=== PATIENT | female | born 1975 | race Caucasian/White ===

== ENCOUNTER → 2017-07-13 | Outpatient (CLI) | payer OTHER ==
[2017-07-13 14:17] LABS: BASO % 1 % (0-3); EOS # 0.1 x10^3/uL (0.0-0.7); EOS % 1 % (0-3); HEMATOCRIT 41.7 % (36.0-47.0); HEMOGLOBIN 13.5 g/dL (12.0-15.5); LYMPH # 1.5 x10^3/uL (1.0-4.8); LYMPH % 32 % (24-48); MEAN CORPUSCULAR HEMOGLOBIN 26 pg (25-35); MEAN CORPUSCULAR HGB CONC 33 g/dL (31-37); MEAN CORPUSCULAR VOLUME 80 fL (79-100); MONO # 0.7 x10^3/uL (0.0-1.1); MONO % 14 % (0-9); NEUT # 2.5 x10^3uL (1.8-7.7); NEUT % 52 % (31-73); PLATELET COUNT 191 x10^3/uL (140-400); RED BLOOD COUNT 5.23 x10^6/uL (3.50-5.40); RED CELL DISTRIBUTION WIDTH 19.8 % (11.5-14.5); WHITE BLOOD COUNT 4.8 x10^3/uL (4.0-11.0)
[2017-07-13 14:22] LABS: BILIRUBIN,URINE NEG (NEG); CLARITY,URINE HAZY; COLOR,URINE YELLOW; GLUCOSE,URINE NEG (NEG); NITRITE,URINE NEG (NEG); UROBILINOGEN,URINE 0.2 mg/dL (0.2 mg/dL)
[2017-07-13 14:23] LABS: ALBUMIN 3.5 g/dL (3.4-5.0); BACTERIA,URINE 0 /HPF (0-FEW); CALCIUM 8.8 mg/dL (8.5-10.1); CREATININE 0.7 mg/dL (0.6-1.0); DIRECT BILIRUBIN 0.1 mg/dL (0.0-0.2); GFR 90.9; PHOSPHORUS 3.9 mg/dL (2.6-4.7); POTASSIUM 3.9 mmol/L (3.5-5.1); RBC,URINE OCC /HPF (0-2); SQUAMOUS EPITHELIAL CELL,UR FEW /LPF; TOTAL BILIRUBIN 0.3 mg/dL (0.2-1.0); TOTAL PROTEIN 6.7 g/dL (6.4-8.2); WBC,URINE OCC /HPF (0-4)
[2017-07-14 04:08] LABS: HEMOGLOBIN A1C 5.2 % (4.8-5.6)
[2017-07-14 05:13] LABS: CREAT CLEAR 24 92 mL/min (88-128); PROTEIN 24 HR UR 81 mg/24 hr (30-150); TOTAL SERUM CREATININE 0.73 mg/dL (0.57-1.00); TOTAL URINE CREATININE 55.5 mg/dL (Not Estab.); UR PROTEIN 4.6 mg/dL (Not Estab.)
[2017-07-14 11:13] LABS: MICRO CREAT RATIO <5.4 mg/g creat (0.0-30.0); MICROALB RD UR <3.0 ug/mL (Not Estab.)
[2017-07-14 16:13] LABS: THYROID STIM HORMONE (TSH) 1.064 uIU/mL (0.358-3.740)
[2017-07-14 22:08] LABS: UR CREATININE RD 54.3 mg/dL (Not Estab.); UR PROTEIN RD 4.2 mg/dL (Not Estab.)
== END | disposition home or self-care (01) ==
LOC: LAB 13:19
PROVIDERS: ATTEND Nurse Practitioner Family
DX: Z00.5 Encounter for examination of potential donor of organ and tissue (principal); R79.89 Other specified abnormal findings of blood chemistry
CPT/HCPCS: 36415; 80061; 80069; 80076; 81001; 82043; 82570; 82575; 83036; 84156; 84443; 84702; 85025; 85610; 85730; 86900; 86901; 87086

== ENCOUNTER → 2017-09-25 | Outpatient (CLI) | payer OTHER ==
--- NOTE | 2017-09-25 15:59 | RAD ---
Examination: Ultrasound kidneys HISTORY: History of right renal cyst COMPARISON: None available FINDINGS: Right kidney measures 11.1 x 4.1 x 5.8 cm. The left kidney measures 11.1 x 5.8 x 5.4 cm. The urinary bladder is mildly distended. IMPRESSION: Unremarkable visualized exam. An obvious cyst could not be identified on the visualized images. Electronically signed by: Myke Moon MD (09/25/2017 3:55 PM) [id number]
--- NOTE | 2017-09-25 17:32 | RAD ---
Pelvic ultrasound Clinical Indication: Endometrial hyperplasia.. . TRANSABDOMINAL SCAN Uterus measures 9 cm longitudinal by 5 cm AP. Endometrial stripe measures 12 mm. Left ovary measures 4.4 cm with intact blood supply. Uterus measures 6.6 cm wide. Right ovary not seen TRANSVAGINAL SCAN Uterus: * Size (in centimeters): 10.0 cm longitudinal by 5.1 cm AP by 6.0 cm wide * Appearance: No focal mass * Endometrium: 11 mm thickness Right ovary: * Size (in centimeters): 2.9 cm long axis * Blood flow: Intact * Appearance: Small follicles. No significant mass. Left ovary: * Size (in centimeters): 3.3 cm * Blood flow: Intact * Appearance: Small follicles. No dominant mass. Free fluid: At least mild free pelvic fluid is noted. IMPRESSION: 1. At least mild free pelvic fluid. 2. Otherwise unremarkable pelvic ultrasound. Electronically signed by: Eugene Stratton MD (09/25/2017 5:28 PM) [id number]
== END | disposition home or self-care (01) ==
LOC: US 08:32
PROVIDERS: ATTEND Nurse Practitioner Family
DX: N28.1 Cyst of kidney, acquired (principal); N85.00 Endometrial hyperplasia, unspecified
CPT/HCPCS: 76770; 76830; 76856

== ENCOUNTER → 2017-12-18 | Outpatient (CLI) | payer OTHER ==
[2017-12-18 13:42] LABS: BASO # 0.1 x10^3/uL (0.0-0.2); BASO % 1 % (0-3); EOS # 0.2 x10^3/uL (0.0-0.7); EOS % 3 % (0-3); HEMATOCRIT 45.7 % (36.0-47.0); HEMOGLOBIN 15.2 g/dL (12.0-15.5); LYMPH # 1.2 x10^3/uL (1.0-4.8); LYMPH % 14 % (24-48); MEAN CORPUSCULAR HEMOGLOBIN 29 pg (25-35); MEAN CORPUSCULAR HGB CONC 33 g/dL (31-37); MEAN CORPUSCULAR VOLUME 88 fL (79-100); MONO % 11 % (0-9); NEUT # 6.6 x10^3uL (1.8-7.7); NEUT % 73 % (31-73); PLATELET COUNT 324 x10^3/uL (140-400); RED BLOOD COUNT 5.18 x10^6/uL (3.50-5.40); RED CELL DISTRIBUTION WIDTH 13.2 % (11.5-14.5)
[2017-12-18 13:52] LABS: ALBUMIN 3.6 g/dL (3.4-5.0); CALCIUM 9.1 mg/dL (8.5-10.1); CREATININE 1.3 mg/dL (0.6-1.0); GFR 44.5; POTASSIUM 4.2 mmol/L (3.5-5.1)
[2017-12-18 14:01] LABS: BILIRUBIN,URINE NEG (NEG); CLARITY,URINE HAZY; COLOR,URINE YELLOW; GLUCOSE,URINE NEG (NEG)
[2017-12-18 14:02] LABS: BACTERIA,URINE FEW /HPF (0-FEW); NITRITE,URINE NEG (NEG); SQUAMOUS EPITHELIAL CELL,UR FEW /LPF; UROBILINOGEN,URINE 0.2 mg/dL (0.2 mg/dL)
== END | disposition home or self-care (01) ==
LOC: LAB 11:50
PROVIDERS: ATTEND Nurse Practitioner Family
DX: Z00.01 Encounter for general adult medical examination with abnormal findings (principal); Z52.4 Kidney donor; R82.90 Unspecified abnormal findings in urine
CPT/HCPCS: 36415; 80069; 81001; 85025

== ENCOUNTER → 2018-01-22 | Outpatient (CLI) | payer OTHER ==
[2018-01-22 09:41] LABS: ALBUMIN 3.7 g/dL (3.4-5.0); CALCIUM 8.9 mg/dL (8.5-10.1); CREATININE 1.1 mg/dL (0.6-1.0); PHOSPHORUS 3.1 mg/dL (2.6-4.7); POTASSIUM 3.9 mmol/L (3.5-5.1)
[2018-01-22 09:43] LABS: BASO # 0.1 x10^3/uL (0.0-0.2); BASO % 2 % (0-3); EOS # 0.1 x10^3/uL (0.0-0.7); EOS % 2 % (0-3); HEMATOCRIT 42.6 % (36.0-47.0); HEMOGLOBIN 14.2 g/dL (12.0-15.5); LYMPH # 1.1 x10^3/uL (1.0-4.8); LYMPH % 17 % (24-48); MEAN CORPUSCULAR HEMOGLOBIN 30 pg (25-35); MEAN CORPUSCULAR HGB CONC 33 g/dL (31-37); MEAN CORPUSCULAR VOLUME 89 fL (79-100); MONO # 0.8 x10^3/uL (0.0-1.1); MONO % 12 % (0-9); NEUT # 4.3 x10^3uL (1.8-7.7); NEUT % 67 % (31-73); PLATELET COUNT 217 x10^3/uL (140-400); RED BLOOD COUNT 4.78 x10^6/uL (3.50-5.40); RED CELL DISTRIBUTION WIDTH 13.5 % (11.5-14.5); WHITE BLOOD COUNT 6.5 x10^3/uL (4.0-11.0)
[2018-01-22 09:57] LABS: AMORPHOUS SEDIMENT,UR PRESENT /HPF; BACTERIA,URINE FEW /HPF (0-FEW); BILIRUBIN,URINE NEG (NEG); CLARITY,URINE HAZY; COLOR,URINE YELLOW; GLUCOSE,URINE NEG (NEG); NITRITE,URINE NEG (NEG); RBC,URINE 0 /HPF (0-2); SQUAMOUS EPITHELIAL CELL,UR MOD /LPF; UROBILINOGEN,URINE 0.2 mg/dL (0.2 mg/dL); WBC,URINE 0 /HPF (0-4)
== END | disposition home or self-care (01) ==
LOC: LAB 08:38
PROVIDERS: ATTEND Nurse Practitioner Family
DX: Z52.4 Kidney donor (principal)
CPT/HCPCS: 36415; 80069; 81001; 85025

== ENCOUNTER → 2018-07-06 | Outpatient (CLI) | payer OTHER ==
[2018-07-06 13:27] LABS: BASO % 1 % (0-3); EOS # 0.1 x10^3/uL (0.0-0.7); EOS % 1 % (0-3); HEMATOCRIT 42.6 % (36.0-47.0); HEMOGLOBIN 14.4 g/dL (12.0-15.5); LYMPH # 1.6 x10^3/uL (1.0-4.8); LYMPH % 25 % (24-48); MEAN CORPUSCULAR HEMOGLOBIN 30 pg (25-35); MEAN CORPUSCULAR HGB CONC 34 g/dL (31-37); MEAN CORPUSCULAR VOLUME 89 fL (79-100); MONO # 0.8 x10^3/uL (0.0-1.1); MONO % 12 % (0-9); NEUT # 4.1 x10^3uL (1.8-7.7); NEUT % 62 % (31-73); PLATELET COUNT 206 x10^3/uL (140-400); RED BLOOD COUNT 4.82 x10^6/uL (3.50-5.40); WHITE BLOOD COUNT 6.6 x10^3/uL (4.0-11.0)
[2018-07-06 13:30] LABS: ALBUMIN 3.9 g/dL (3.4-5.0); CALCIUM 9.4 mg/dL (8.5-10.1); PHOSPHORUS 3.3 mg/dL (2.6-4.7); POTASSIUM 3.4 mmol/L (3.5-5.1)
[2018-07-06 13:43] LABS: BACTERIA,URINE 0 /HPF (0-FEW); BILIRUBIN,URINE NEG (NEG); CLARITY,URINE HAZY; COLOR,URINE YELLOW; GLUCOSE,URINE NEG (NEG); NITRITE,URINE NEG (NEG); RBC,URINE RARE /HPF (0-2); SQUAMOUS EPITHELIAL CELL,UR FEW /LPF; UROBILINOGEN,URINE 0.2 mg/dL (0.2 mg/dL); WBC,URINE RARE /HPF (0-4)
== END | disposition home or self-care (01) ==
LOC: LAB 12:54
PROVIDERS: ATTEND Nurse Practitioner Family
DX: Z94.0 Kidney transplant status (principal)
CPT/HCPCS: 36415; 80069; 81001; 85025

== ENCOUNTER 2021-03-09 07:49 | Emergency (ER) | payer BC, OTHER ==
[~2021-03-09] VITALS: Ht 160 cm; Wt 76.8 kg
[2021-03-09] MEDS ORDERED: ONDANSETRON PF 4 MG/2 ML VIAL. IVP ONE ×2 (08:00→10:30)
[2021-03-09] MEDS ORDERED: IV NORMAL SALINE 1,000ML 1,000 ML IV SCH (08:00)
--- NOTE | 2021-03-09 08:01 | PHYS DOC ---
Past History Past Medical History: No Pertinent History Past Surgical History Left nephrectomy 2019 Smoking: Non-smoker Adult General HPI HPI Patient is a 45-year-old female presenting for right-sided flank pain. Onset was this morning and awoke her from sleep. Nothing known makes better or worse. Reports pain originates in right flank and radiates to the right pubic region. Timing of symptoms has been constant since onset. Pain is described as sharp in 10/10 in severity. Associated symptoms include nausea and x1 episode of nonbloody nonbilious emesis due to the pain. She otherwise has no issues urinary dating and/or defecating. Has prior history of left-sided nephrectomy in 2019, she donated her kidney and is on no residual medications, no other noteworthy medical conditions reported Review of Systems Review of Systems Fourteen body systems of review of systems have been reviewed. See HPI for pertinent positives and negative responses, other baca all other systems are negative, non-pertinent or non-contributory Physical Exam Physical Exam Constitutional: Well developed, well nourished, age-appropriate, moderate distress due to acute pain but is otherwise non-toxic in appearance. HENT: Normocephalic, atraumatic, bilateral external ears normal, oropharynx moist, no oral exudates, nose normal. Eyes: PERRLA, EOMI, conjunctiva normal, no discharge. Neck: Normal range of motion, no tenderness, supple, no stridor. Cardiovascular: Heart rate regular, sinus rhythm, no murmurs rubs or gallops Lungs & Thorax: Bilateral breath sounds clear to auscultation Abdomen: Bowel sounds normal, soft, no tenderness, no masses, no pulsatile masses. Nonsurgical abdomen, no peritoneal signs Skin: Warm, dry, no erythema, no rash. Back: No tenderness, right CVA tenderness. Extremities: No tenderness, no cyanosis, no clubbing, ROM intact, no edema. Neurologic: Alert and oriented X 3, grossly normal motor & sensory function, no focal deficits noted. Psychologic: Tearful affect, anxious mood Current Patient Data Vital Signs Vital Signs Date Time Temp Pulse Resp B/P (MAP) Pulse Ox O2 Delivery O2 Flow Rate FiO2 03/09/21 07:55 97.5 64 20 141/74 (96) 100 Room Air Vital Signs Date Time Temp Pulse Resp B/P (MAP) Pulse Ox O2 Delivery O2 Flow Rate FiO2 03/09/21 07:55 97.5 64 20 141/74 (96) 100 Room Air Lab Results Laboratory Tests Test 03/09/21 08:01 White Blood Count 7.3 x10^3/uL Red Blood Count 5.09 x10^6/uL Hemoglobin 13.1 g/dL Hematocrit 41.0 % Mean Corpuscular Volume 81 fL Mean Corpuscular Hemoglobin 26 pg Mean Corpuscular Hemoglobin Concent 32 g/dL Red Cell Distribution Width 17.2 % Platelet Count 206 x10^3/uL Neutrophils (%) (Auto) 47 % Lymphocytes (%) (Auto) 34 % Monocytes (%) (Auto) 16 % Eosinophils (%) (Auto) 3 % Basophils (%) (Auto) 1 % Neutrophils # (Auto) 3.4 x10^3uL Lymphocytes # (Auto) 2.4 x10^3/uL Monocytes # (Auto) 1.2 x10^3/uL Eosinophils # (Auto) 0.2 x10^3/uL Basophils # (Auto) 0.1 x10^3/uL Sodium Level 140 mmol/L Potassium Level 3.6 mmol/L Chloride Level 104 mmol/L Carbon Dioxide Level 25 mmol/L Anion Gap 11 Blood Urea Nitrogen 18 mg/dL Creatinine 1.2 mg/dL Estimated GFR (Cockcroft-Gault) 48.2 BUN/Creatinine Ratio 15 Glucose Level 145 mg/dL Calcium Level 8.8 mg/dL Total Bilirubin 0.4 mg/dL Aspartate Amino Transf (AST/SGOT) 19 U/L Alanine Aminotransferase (ALT/SGPT) 21 U/L Alkaline Phosphatase 98 U/L Total Protein 7.2 g/dL Albumin 3.6 g/dL Albumin/Globulin Ratio 1.0 Lipase 124 U/L Current Medications Medications (Trade) Dose Ordered Sig/Goldie Route PRN Reason Start Time Stop Time Status Last Admin Dose Admin Sodium Chloride 1,000 ml @ 1,000 mls/hr Q1H IV 03/09/21 08:00 03/09/21 08:59 DC 03/09/21 08:09 Fentanyl Citrate (Fentanyl 2ml Vial) 75 mcg 1X ONCE IVP 03/09/21 08:00 03/09/21 08:26 DC 03/09/21 08:08 Ondansetron HCl (Zofran) 4 mg 1X ONCE IVP 03/09/21 08:00 03/09/21 08:26 DC 03/09/21 08:08 Fentanyl Citrate (Fentanyl 2ml Vial) 75 mcg 1X ONCE IVP 03/09/21 09:00 03/09/21 09:01 DC 03/09/21 08:57 Ondansetron HCl (Zofran) 4 mg 1X ONCE IVP 03/09/21 10:30 03/09/21 10:31 DC 03/09/21 10:28 Acetaminophen/ Hydrocodone Bitart (Lortab 10/325) 1 tab 1X ONCE PO 03/09/21 10:30 03/09/21 10:31 DC 03/09/21 10:28 EKG EKG [] Radiology/Procedures Radiology/Procedures EXAM: Abdomen and pelvis CT without intravenous contrast. HISTORY: Right flank pain. TECHNIQUE: Computed tomographic images of the abdomen and pelvis were obtained without contrast. Multiplanar reformatting was performed. *One or more of the following individualized dose reduction techniques were utilized for this examination: 1. Automated exposure control. 2. Adjustment of the mA and/or kV according to patient size. 3. Use of iterative reconstruction technique. COMPARISON: None. FINDINGS: Evaluation of the lower thorax demonstrates no infiltrate or pleural effusion. There is minimal right posterior dependent atelectasis. The heart is n ormal in size. No hepatic lesion is seen on this noncontrast exam. The gallbladder is unremarkable. The pancreas, spleen and adrenal glands are unremarkable. The left kidney is absent. There is mild right hydronephrosis and hydroureter extending to a 3 mm calcification within the right hemipelvis due to a stone at the ureterovesical junction rather than an adjacent pelvic phleboliths. There is a 1 mm nonobstructing right renal stone. The bladder is empty. There is no appendicitis. There is an umbilical and periumbilical hernia containing fat and a segment of mid transverse colon. There is stranding within the herniated fat and adjacent ventral peritoneal fat. There is no evidence of mechanical bowel obstruction or bowel incarceration. The hernia defect measures 5.7 cm transversely by 5.2 cm craniocaudally. There is an additional supraumbilical hernia sac to the right of midline containing fat and measuring approximately 4.6 cm. There is a third tiny fat-containing superior umbilical hernia superior to this location measuring 2.1 cm. The uterus and ovaries are unremarkable. There is trace pelvic free fluid, within physiologic limits for a premenopausal female. There is no lymphadenopathy. There is degenerative change involving the spine, primarily the lumbosacral junction. There is a right foraminal stenosis at L5-S1, and to a lesser extent, left foraminal stenosis at L4-L5. IMPRESSION: 1. Mild right hydronephrosis and hydroureter extending to a suspected 3 mm stone at the ureterovesical junction. 2. Multiple ventral abdominal wall hernias, the largest of which contains fat and a segment of mid transverse colon. There is stranding within the herniated fat and adjacent ventral peritoneal fat, a finding which can be seen with fat ischemia/incarceration. There is no evidence of bowel incarceration or mechanical obstruction. 3. Left nephrectomy. Electronically signed by: Jennifer Rivera MD (03/09/2021 8:32 AM) [id number] Heart Score C/O Chest Pain: No Risk Factors: Risk Factors: DM, Current or recent (<one month) smoker, HTN, HLP, family history of CAD, obesity. Risk Scores: Risk Factors: DM, Current or recent (<one month) smoker, HTN, HLP, family history of CAD, obesity. Course & Med Decision Making Course & Med Decision Making ABCs unremarkable HPI physical exam and comprehensive ER work-up concerning for right sided nonconcerning kidney stone should pass and concerning findings for abdominal fat ischemia Disclose kidney stone is 3 mm, no indication for Flomax subsequent pain meds and expectant management with close PCP follow-up advised I contacted on-call general surgeon at [facility] and reviewed concerning CT abdomen pelvis and physical exam findings, they recommended expectant management and close outpatient follow-up for repeat abdominal evaluation I disclosed entirety of ER findings with patient who symptoms improved with provided ER care. Patient unable to urinate and did not want to wait any longer to urinate before discharge home. As such, appropriate discharge instructions and subsequent return precautions educated to patient and significant other at length prior to ER departure with close outpatient surgery follow-up advised Unruly Disclaimer Unruly Disclaimer This electronic medical record was generated, in whole or in part, using a voice recognition dictation system. Departure Departure: Impression: Primary Impression: Right kidney stone Additional Impression: Abnormal CT of the abdomen Disposition: HOME / SELF CARE / HOMELESS Condition: IMPROVED Referrals: MARI HOLLAND (PCP) Patient Instructions: Kidney Stones Additional Instructions: You were seen for flank pain and bloody urine. You most likely have a kidney stone that will hopefully pass. We are writing you a prescription for pain medication. You should strain your urine to look for the stone. Your CT imaging did not show any signs that your stone is obstructing anything. I also disclosed abnormal findings of potential fat ischemia in the setting of your known ventral abdominal wall hernias. This was discussed with on-call surgeon and it was recommended you see close outpatient follow-up regarding this. You should return to the ED if you develop worsening pain, fever, continued bloody urine, lightheadedness, shortness of breath, chest pain, or any other new or concerning symptoms. Scripts Ondansetron (ONDANSETRON ODT) 4 Mg Tab.rapdis 1 TAB PO PRN Q6-8HRS for NAUSEA, #16 TAB Prov: STEVEN ALEIXS DO 03/09/21 Hydrocodone Bit/Acetaminophen (HYDROCODONE-APAP 10-325 ) 1 Each Tablet 1 TAB PO PRN Q6HRS PRN for PAIN, #20 TAB 0 Refills Prov: STEVEN ALEXIS DO 03/09/21 Problem Qualifiers STEVEN ALEXIS DO Mar 09, 2021 08:01
[2021-03-09 08:18] LABS: BASO # 0.1 x10^3/uL (0.0-0.2); BASO % 1 % (0-3); EOS # 0.2 x10^3/uL (0.0-0.7); EOS % 3 % (0-3); HEMOGLOBIN 13.1 g/dL (12.0-15.5); LYMPH # 2.4 x10^3/uL (1.0-4.8); LYMPH % 34 % (24-48); MEAN CORPUSCULAR HEMOGLOBIN 26 pg (25-35); MEAN CORPUSCULAR HGB CONC 32 g/dL (31-37); MEAN CORPUSCULAR VOLUME 81 fL (79-100); MONO # 1.2 x10^3/uL (0.0-1.1); MONO % 16 % (0-9); NEUT # 3.4 x10^3uL (1.8-7.7); NEUT % 47 % (31-73); PLATELET COUNT 206 x10^3/uL (140-400); RED BLOOD COUNT 5.09 x10^6/uL (3.50-5.40); RED CELL DISTRIBUTION WIDTH 17.2 % (11.5-14.5); WHITE BLOOD COUNT 7.3 x10^3/uL (4.0-11.0)
[2021-03-09 08:23] LABS: CALCIUM 8.8 mg/dL (8.5-10.1); CREATININE 1.2 mg/dL (0.6-1.0); GFR 48.2; POTASSIUM 3.6 mmol/L (3.5-5.1)
[2021-03-09 08:28] LABS: ALBUMIN 3.6 g/dL (3.4-5.0); TOTAL BILIRUBIN 0.4 mg/dL (0.2-1.0); TOTAL PROTEIN 7.2 g/dL (6.4-8.2)
--- NOTE | 2021-03-09 08:34 | RAD ---
EXAM: Abdomen and pelvis CT without intravenous contrast. HISTORY: Right flank pain. TECHNIQUE: Computed tomographic images of the abdomen and pelvis were obtained without contrast. Mult iplanar reformatting was performed. *One or more of the following individualized dose reduction techniques were utilized for this examina tion: 1. Automated exposure control. 2. Adjustment of the mA and/or kV according to patient size. 3. Use of iterative reconstruction technique. COMPARISON: None. FINDINGS: Evaluation of the lower thorax demonstrates no infiltrate or pleural effusion. There is min imal right posterior dependent atelectasis. The heart is normal in size. No hepatic lesion is seen on this noncontrast exam. The gallbladder is unremarkable. The pancreas, spleen and adrenal glands are unremarkable. The left kidney is absent. There is mild right hydronephrosis and hydroureter extending to a 3 mm ashley cification within the right hemipelvis due to a stone at the ureterovesical junction rather than an a djacent pelvic phleboliths. There is a 1 mm nonobstructing right renal stone. The bladder is empty. There is no appendicitis. There is an umbilical and periumbilical hernia containing fat and a segment of mid transverse colon. There is stranding within the herniated fat and adjacent ventral peritoneal fat. There is no evidence of mechanical bowel obstruction or bowel incarceration. The hernia defect measures 5.7 cm transversely by 5.2 cm craniocaudally. There is an additional supraumbilical hernia s ac to the right of midline containing fat and measuring approximately 4.6 cm. There is a third tiny f at-containing superior umbilical hernia superior to this location measuring 2.1 cm. The uterus and ovaries are unremarkable. There is trace pelvic free fluid, within physiologic limits for a premenopausal female. There is no lymphadenopathy. There is degenerative change involving the s pine, primarily the lumbosacral junction. There is a right foraminal stenosis at L5-S1, and to a less er extent, left foraminal stenosis at L4-L5. IMPRESSION: 1. Mild right hydronephrosis and hydroureter extending to a suspected 3 mm stone at the ureterovesica l junction. 2. Multiple ventral abdominal wall hernias, the largest of which contains fat and a segment of mid tr ansverse colon. There is stranding within the herniated fat and adjacent ventral peritoneal fat, a fi nding which can be seen with fat ischemia/incarceration. There is no evidence of bowel incarceration or mechanical obstruction. 3. Left nephrectomy. Electronically signed by: Jennifer Rivera MD (03/09/2021 8:32 AM) [id number]
[2021-03-09] MEDS ORDERED: HYDROcodone/APAP 10/325 1 TAB TABLET PO ONE (10:30)
[2021-03-09 10:51] VITALS: BP 123/73
[2021-03-09] MEDS ORDERED: HYDR-2769 PO (10:55)
[2021-03-09] MEDS ORDERED: ONDA4TAB12 PO (10:57)
== END 2021-03-09 11:18 | disposition home or self-care (01) ==
LOC: ER 07:49
DX: N13.2 Hydronephrosis with renal and ureteral calculous obstruction (principal); R93.5 Abnormal findings on diagnostic imaging of other abdominal regions, including retroperitoneum
CPT/HCPCS: 36415; 74176; 80053; 83690; 85025; 96361; 96374; 96375; 96376; 99284; J2405; J3010; J7030